=== PATIENT | male | born 1955 | race Caucasian/White ===

== ENCOUNTER → 2020-06-13 09:57 | Outpatient (BNVA) | payer OTHER, SELFPAY | PROVIDERS: Visit Provider Dermatology | DX: D48.9 Neoplasm of uncertain behavior, unspecified (principal) | CPT/HCPCS: 88304 ==

== ENCOUNTER → 2021-10-14 12:43 | Outpatient (BNVA) | payer OTHER, SELFPAY | PROVIDERS: PCP Family Medicine; Visit Provider Internal Medicine Cardiovascular Disease | DX: R07.9 Chest pain, unspecified (principal); R06.02 Shortness of breath; I10 Essential (primary) hypertension | CPT/HCPCS: 99204; 99205 ==

== ENCOUNTER 2021-10-31 09:48 | Outpatient (CLI) | payer OTHER, SELFPAY ==
[2021-10-31 09:57] VITALS: BMI 42.0
--- NOTE | 2021-10-31 10:11 | ECG_ITS ---
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 Interpretive Statements NAME OF STUDY: EXERCISE SESTAMIBI STRESS TEST INDICATION: Chest pain, shortness of breath with exertion Baseline blood pressure of 131/87 mm Hg, heart rate of 77 beats per minute and oxygen saturation 94%. EKG showed normal sinus rhythm, normal axis with normal ST-Ts. The patient exercised for 7 minutes 56 seconds on a standard Lauro protocol. Patient attained a maximum heart rate of 151 beats per minute(97% of the maximum predicted heart rate) with a blood pressure at the peak exercise of 200/82 mm Hg and oxygen saturation of 92%. The EKG at the peak exercise revealed sinus tachycardia with no significant ST-T wave changes. Patient did not have any chest pain or any significant arrhythmis with the exercise. Study was terminated due to exertional fatigue and shortness of breath. Isolated PVCs noted during exercise. During the recovery phase, there were no new changes. Isolated PVCs noted in early recovery. Blood pressure at the end of the recovery phase was 140/71 mm Hg with a heart rate of 92 beats per minute and oxygen saturation 95%. CONCLUSION: 1. Normal EKG response to treadmill exercise. 2. No exercise-induced chest pain or cardiac arrhythmia 3. Excellent exercise tolerance, attained a maximum of 10.2 METs. Maximum VO2 of 35.7 mL/kg/min. 4. Baseline normal blood pressure with normal response to exercise. 5. Perfusion scan will be documented separately. Electronically Signed On 10-31-2021 15:22:43 CDT by Hansa Ortega M.D. [id number]
--- NOTE | 2021-10-31 10:12 | NMCV_ITS ---
NM phoebe perf SPECT r/s* [id number] Masood Mcgill Age: 66 Gender: M : 1955 Exam Date: 10/31/2021 11:11 Ordering Phys: Hansa Ortega MD ([email or web address]) Technologist: DOTTY Fields Exam Location: [facility] Indications: CHEST PAIN STRESS TEST Please see separate stress test report in [facility] for full findings IMAGE PROTOCOL Rest/Stress 1 Exercise Day Radiopharmaceutical Dose (mCi) Administration Site Administered by Rest: Tc-99m 11.0 IV DOTTY Fields Sestamibi Stress:Tc-99m 32.5 IV DOTTY Fields Sestamibi Rest: 31-Oct-2021 60 Discovery 630 Stress: 31-Oct-2021 30 Discovery 630 Radiopharmaceutical was injected at 93 % maximum heart rate. Images obtained in supine and prone position. SPECT RESULTS Technical Quality: Excellent Raw Data Analysis: Normal Image Corrections: No attenuation or motion correction applied Summed Stress Score: 2 Summed Rest Score: 2 Summed Difference Score: 1 PERFUSION FINDINGS Small sized perfusion abnormality of mild severity of mid inferior and mid inferoseptal sutton on rest images with no significant reversibility in supine stress images. Prone stress images showed somewhat decreased tracer uptake in apical lateral wall. FUNCTIONAL RESULTS (calculated via Gated SPECT) Stress Image LV EF (%): 68 Stress EDV (mL):87 TID: 0.97 Stress ESV (mL):28 FUNCTIONAL FINDINGS: The left ventricle is normal in size. Transient Ischemia Dilatation of 0.97. There is normal left ventricular systolic function. The left ventricular ejection fraction is normal with a value of 68%. There is normal left ventricular wall thickening with no regional wall motion abnormality. Normal end-diastolic and end-systolic volumes. IMPRESSIONS 1. Small sized fixed perfusion abnormality of mild severity of mid inferior and mid inferoseptal sutton. 2. This may represent old myocardial infarction in right coronary artery territory or attenuation artifact. 3. Overall left ventricular systolic function is normal without regional wall motion abnormalities. 4. The left ventricular ejection fraction is normal with a value of 68%. 5. No significant coronary ischemia based on the study. Hansa Ortega MD (Electronically Signed) Final Date: 03 November 2021 13:18 S
[2021-10-31 12:17] VITALS: BP 140/71; PULSE 91
== END 2021-10-31 09:49 | disposition home or self-care (01) ==
LOC: CDL 09:49
PROVIDERS: PCP Family Medicine; Visit Provider Internal Medicine Cardiovascular Disease
DX: R07.9 Chest pain, unspecified (principal)
CPT/HCPCS: 78452; 93017; A9500

== ENCOUNTER → 2022-06-29 13:30 | Outpatient (BNVA) | payer OTHER, SELFPAY | PROVIDERS: PCP Family Medicine; Visit Provider Urology | DX: N40.1 Benign prostatic hyperplasia with lower urinary tract symptoms (principal); N52.9 Male erectile dysfunction, unspecified | CPT/HCPCS: 81003; 99203 ==

== ENCOUNTER → 2022-08-06 07:41 | Outpatient (BNVA) | payer OTHER, SELFPAY | PROVIDERS: PCP Family Medicine; Visit Provider Urology | DX: N40.1 Benign prostatic hyperplasia with lower urinary tract symptoms (principal); N52.9 Male erectile dysfunction, unspecified; E11.9 Type 2 diabetes mellitus without complications; R06.02 Shortness of breath; G47.33 Obstructive sleep apnea (adult) (pediatric); R35.89 Other polyuria | CPT/HCPCS: 51741; 51798; 81003; 99213 ==

== ENCOUNTER → 2022-11-03 14:57 | Outpatient (BNVA) | payer OTHER, SELFPAY | PROVIDERS: PCP Family Medicine; Visit Provider Urology | DX: N40.1 Benign prostatic hyperplasia with lower urinary tract symptoms (principal); N52.9 Male erectile dysfunction, unspecified; E11.9 Type 2 diabetes mellitus without complications; R35.89 Other polyuria; G47.33 Obstructive sleep apnea (adult) (pediatric) | CPT/HCPCS: 99213 ==

== ENCOUNTER → 2024-09-26 10:55 | Outpatient (BNVA) | payer OTHER, SELFPAY | PROVIDERS: PCP Family Medicine; Visit Provider Surgery | DX: Z12.11 Encounter for screening for malignant neoplasm of colon (principal) | CPT/HCPCS: 99204 ==

== ENCOUNTER 2024-10-05 07:18 | Day surgery (SDC) | payer OTHER, SELFPAY ==
--- NOTE | 2024-10-05 07:33 | P.HPUD_ITS ---
Surgery/Procedure H&P Update DATE OF PROCEDURE: October 05, 2024 DATE H&P PERFORMED: 09/26/24 H&P UPDATE INFORMATION: I have reviewed H&P completed within last 30 days, I have examined patient prior to procedure, No changes to prior documentation and H&P is in [facility] EMR on date indicated PLANNED PROCEDURE: Operation Date: 10/05/24 08:35 Proposed Procedures p Colonoscopy 12615, G0121, Z12.11(Not Applicable) - Costa Bower MD
--- NOTE | 2024-10-05 07:37 | ECG_ITS ---
[facility]: [facility]24[facility]05 Pat Name: Masood Mcgill Department: Room: Gender: Male Neurology Epilepsy Physician: : 1955 Requested By: Tristen Heath Order Number: [id number] Reading MD: Measurements Intervals [place] Rate: 76 P: -14 GA: 178 QRS: 13 QRSD: 93 T: 34 QT: 365 QTc: 412 Interpretive Statements SINUS RHYTHM [id number] [id number]
[2024-10-05 07:38] VITALS: BP 168/93; PULSE 87; RESP 17; TEMP 36.1; O2SAT 94; BMI 39.4
[2024-10-05 07:44] LABS: Glucose Point of Care 129 mg/dL (70-110)
[2024-10-05] MEDS: sodium chloride 0.9% 500 ML 15 ML IV (07:45)
[2024-10-05 08:13] LABS: Anion Gap 21.5 (5-19); Blood Urea Nitrogen 14 mg/dL (8-23); Calcium 9.2 mg/dL (8.5-10.5); Carbon Dioxide 20 mmol/L (22-29); Chloride 101 mmol/L (98-107); Glomerular Filtration Rate 74.3 mL/min (90-130); Glucose 146 mg/dL (65-115); Osmolality Calculated 289 mOsm/kg (285-295); Potassium 4.5 mmol/L (3.5-5.1); Sodium 138 mmol/L (136-145)
--- NOTE | 2024-10-05 08:15 | ANES.PREANE2 ---
Pre-Anesthetic Assessment Height/Weight: Height 1.83 m Weight 131.995 kg Temp Pulse Resp BP Pulse Ox O2 Del Method 97.0 F L 87 17 168/93 94 Room Air 10/05/24 07:38 10/05/24 07:38 10/05/24 07:38 10/05/24 07:38 10/05/24 07:38 10/05/24 07:38 Preop Diagnosis: screening Operation Date: 10/05/24 08:35 Proposed Procedures p Colonoscopy 38552, G0121, Z12.11(Not Applicable) - Costa Bower MD Familial anesthetic complications: none Was Beta Aayush taken within 24 hours: N/A Was Clonidine taken within 24 hours: N/A Last intake: Intake Last Liquid Date 10/04/24 Last Liquid Time 21:00 Last Solid Date 10/03/24 Last Solid Time 18:00 Social Alcohol (occasionally its been several weeks per patient) Exam alert, oriented x 3, clear to auscultation bilaterally and regular rate & rhythm Airway Submandibular: within normal limits Cervical ROM: within normal limits Mallampati: Class II Dentition: caps Pulmonary Sleep Apnea (cpap compliant) CV/HEM Hypertension and Myocardial Infarction (mild NM on stress test 2021 no interventions.) None reported Hepatic None reported GI None reported Metabolic Diabetes Mellitus, Hyperlipidemia, Morbid Obesity and Thyroid Disease Semagludtide 12 days prior [facility] None reported Neuropsych None reported Anesthetic Plan ASA status: 3 Anesthesia: MAC Medications/Allergies Home Medications ?Medication ?Instructions ?Recorded ?Confirmed ?Last Taken ?Type aspirin 81 mg tablet,delayed 81 mg PO DAILY 11/08/19 10/02/24 10/02/24 History release (Aspir-) atorvastatin 40 mg tablet 80 mg PO DAILY 10/14/21 10/02/24 10/02/24 History levothyroxine 75 mcg capsule 50 mcg PO DAILY 10/14/21 10/02/24 10/02/24 History lisinopril 20 mg tablet 20 mg PO DAILY 10/14/21 10/02/24 10/02/24 History metformin 500 mg tablet 1,000 mg PO BID 10/14/21 10/02/24 10/02/24 History empagliflozin 25 mg tablet 25 mg PO DAILY 10/02/24 10/02/24 10/02/24 History glimepiride 4 mg tablet 4 mg PO DAILY 10/02/24 10/02/24 10/02/24 History semaglutide (weight loss) 0.25 0.25 mg SUBCUT Q7D 10/02/24 10/02/24 09/23/24 History mg/0.5 mL subcutaneous pen injector (Blaine) trazodone 100 mg tablet 50 mg PO DAILY 10/02/24 10/02/24 10/01/24 History Allergies Allergy/AdvReac Type Severity Reaction Status Date / Time No Known Allergies Allergy Verified 10/02/24 11:26 Current Medications Generic Name Dose Route Start Last Admin Trade Name Freq PRN Reason Stop Dose Admin Sodium Chloride 500 mls @ 15 mls/hr 10/05/24 07:22 10/05/24 07:45 Sodium Chloride 0.9% IV 10/06/24 07:21 15 mls/hr .Q24H PRN Administration COLONOSCOPY FLUIDS PFSH Anesthesia Medical History BPH loc w urin obs/LUTS Hypogonadism Erectile dysfunction HTN (hypertension) Hyperlipidemia OPAL (obstructive sleep apnea) Diabetes mellitus Diabetic neuropathy Surgical History History of tonsillectomy and adenoidectomy History of appendectomy S/P anal fissurectomy Family History Mother , AT AGE 87 Diabetes Father , AT AGE 87 No problems noted. Social History Smoking and tobacco/nicotine status: never used tobacco/nicotine Alcohol intake: current Alcohol intake frequency: holidays/special occasions only Substance/Drug Use: never Marital status: Current occupational status: employed and retired Current occupation: CLINICAL RN Data Anesthesia 10/05/24 07:33 BMP 10/05/24 07:33 Sodium 138 Potassium 4.5 Chloride 101 BUN 14 Creatinine 1.0 Calcium 9.2 Cardiac Studies: Sestamibi Stress Test (Cardiology) 10/31/21
[2024-10-05 08:58] VITALS: BP 95/75; PULSE 86; RESP 14; TEMP 36.3; O2SAT 92
[2024-10-05 09:08] VITALS: BP 121/80; PULSE 85; RESP 16; O2SAT 92
--- NOTE | 2024-10-05 09:35 | ANE.PACU2 ---
Inpatient post-anesthesia follow up: Airway intact: Yes Vital signs: Temperature 97.4 F Pulse Rate 85 Respiratory Rate 16 Blood Pressure 121/80 Pulse Oximetry 92 Oxygen Delivery Me thod Room Air Oxygen Flow Rate Fraction of Inspir ed Oxygen Hydration adequate: Yes Nausea and vomiting: No Pain level: 1 Mental status: Baseline
== END 2024-10-05 09:35 | disposition home or self-care (01) ==
PROVIDERS: Student in an Organized Health Care Education/Training Program; PCP Family Medicine; Visit Provider Surgery
PROC: 0DJD8ZZ Inspection of Lower Intestinal Tract, Via Natural or Artificial Opening Endoscopic (ICD-10-PCS; CPT 45378; principal; 2024-10-05 08:35)
DX: Z12.11 Encounter for screening for malignant neoplasm of colon (principal); K57.30 Diverticulosis of large intestine without perforation or abscess without bleeding; K64.8 Other hemorrhoids; Z79.899 Other long term (current) drug therapy; Z79.82 Long term (current) use of aspirin; Z79.84 Long term (current) use of oral hypoglycemic drugs; Z79.890 Hormone replacement therapy
CPT/HCPCS: 36415; 36416; 45378; 80048; 82962; 93005; J2704; J7040